=== PATIENT | female | born 1975 | race Caucasian/White ===

== ENCOUNTER 2024-05-26 14:40 | Emergency (ER) | payer OTHER ==
[~2024-05-26] VITALS: Wt 3.1 kg
[2024-05-26] MEDS ORDERED: methylPREDNISolone sod succ 125 MG VIAL IM ONE (15:45)
[2024-05-26] MEDS ORDERED: CLINDAMYCIN HCL 300 MG CAPSULE PO ONE (15:45)
[2024-05-26] MEDS ORDERED: CLINDAMYCIN HC300 MG PO (15:46)
== END 2024-05-26 15:57 | disposition home or self-care (01) ==
LOC: ED 14:40
DX: J02.9 Acute pharyngitis, unspecified (principal); E03.9 Hypothyroidism, unspecified; Z88.8 Allergy status to other drugs, medicaments and biological substances; Z88.0 Allergy status to penicillin